=== PATIENT | male | born 1950 | race Caucasian/White ===

== ENCOUNTER 2016-07-24 05:58 | Emergency (ER) | payer OTHER ==
[~2016-07-24] VITALS: Ht 182.9 cm; Wt 105.0 kg
[~2016-07-24 05:58] MED LIST: ROBA750T PO
[2016-07-24 06:12] VITALS: BP 152/88; PULSE 58; RESP 16; TEMP 98.6; O2SAT 99
[2016-07-24] MEDS ORDERED: VALT1TAB PO (06:25)
--- NOTE | 2016-07-24 06:25 | PD ---
HPI Chief Complaint: Skin Problem Time Seen by Provider: 06:16 Travel History International Travel<30 days: No Contact w/Intl Traveler<30days: No Traveled to known affect area: No History of Present Illness HPI Skin otherwise healthy 65 room and who presents emergent arm or the distribution goes is recurring. Last year he had what sounds like V1 distribution shingles over his forehead. He has postherpetic neuralgia from that. She having worsening pain and abnormal sensations with past couple days. Also had some hot flash-type symptoms over the past couple days. This morning 7 worsening pain and felt small blisters over the top of his brow. He otherwise has been feeling generally well. No other complaints. No other episodes of shingles other than the one previous time. Patient states is read that if you get it read the diffuse treated immediately it'll reduce the severity of symptoms. History Past Medical History Medical History: Denies Significant Hx Social History Alcohol Use: Yes Tobacco Use: No Allergies-Medications (Allergen,Severity, Reaction): Coded Allergies: No Known Allergies (Verified , 01/13/16) Reported Meds & Prescriptions Reported Meds & Active Scripts Active Robaxin (Methocarbamol) 750 Mg Tab 750 Mg PO QID PRN 2 tabs QID for 2 days, then 1 tab QID thereafter Review of Systems Except as stated in HPI: all other systems reviewed are Neg Physical Exam Narrative GENERAL: Medical decision making, no acute distress. SKIN: Focused skin assessment warm/dry. HEAD: Atraumatic. Normocephalic. EYES: Pupils equal and round. No scleral icterus. No injection or drainage. Flourescene exam is negative. ENT: No nasal bleeding or discharge. Mucous membranes pink and moist. Small blisters over the right brow. NECK: Trachea midline. No JVD. CARDIOVASCULAR: Regular rate and rhythm. No murmur appreciated. RESPIRATORY: No accessory muscle use. Clear to auscultation. Breath sounds equal bilaterally. GASTROINTESTINAL: Abdomen soft, non-tender, nondistended. Hepatic and splenic margins not palpable. MUSCULOSKELETAL: No obvious deformities. Data Data Last Documented VS Vital Signs Date Time Temp Pulse Resp B/P Pulse Ox O2 Delivery O2 Flow Rate FiO2 07/24/16 06:12 98.6 58 16 152/88 99 Room Air Orders Valacyclovir (Valtrex) (07/24/16 06:30) [facility] Medical Decision Making Medical Screen Exam Complete: Yes Emergency Medical Condition: Yes Differential Diagnosis Shingles, postherpetic neuralgia, blisters, other Narrative Course Medical decision making 65-year-old man, post medic neuralgia, small blistered right above the brow. This is suggestive of early zoster but not clearly diagnostic of such. Nonetheless, we'll recommend treatment with Valtrex, outpatient follow-up. Diagnosis Primary Impression: Zoster Additional Instructions: Take zoster as prescribed. Valtrex as prescribed. Return to the emergency department for any new or worsening symptoms. Med/Other Pt SpecificInfo: Prescription(s) given Scripts Valacyclovir (Valtrex)1 Gm Tab1,000 Mg PO TID 7 Days Ref 0 Prov:Bin Miles MD 07/24/16 Disposition: 01 DISCHARGE HOME Condition: Stable Bin Miles MD Jul 24, 2016 06:25
[2016-07-24] MEDS ORDERED: valACYclovir HCL 500 MG TAB PO ONE (06:30)
== END 2016-07-24 06:50 | disposition home or self-care (01) ==
LOC: NEPC 05:58
DX: B02.9 Zoster without complications (principal); X58.XXXA Exposure to other specified factors, initial encounter
CPT/HCPCS: 99283

== ENCOUNTER 2016-09-14 10:09 | Emergency (ER) | payer OTHER ==
[~2016-09-14] VITALS: Ht 190.5 cm; Wt 100.0 kg
[~2016-09-14 10:09] MED LIST changes: -ROBA750T PO; +VALT1TAB PO
[2016-09-14 10:16] VITALS: BP 159/89; PULSE 77; RESP 17; TEMP 98.2; O2SAT 98
[2016-09-14] MEDS ORDERED: HYDR-3583 PO (12:31)
[2016-09-14] MEDS ORDERED: TEMA15CA PO (12:31)
[2016-09-14] MEDS ORDERED: ZOLO25TA PO (12:31)
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
[2016-09-14] MEDS ORDERED: LIDOCAINE 1%/EPINEPHrine 1:100,000 SOLN 20 ML VIAL INFIL ONE (12:45)
[2016-09-14] MEDS ORDERED: LIDOCAINE 1%/EPINEPHrine 1:100,000 SOLN 30 ML VIAL ONE (12:47)
--- NOTE | 2016-09-14 14:18 | RADRPT ---
EXAM DATE/TIME: 09/14/2016 14:02 [facility] COMPARISON: CT BRAIN W/O CONTRAST, March 15, 2010, 22:02. INDICATIONS : Patient fell today, 2 feet and hit head. RADIATION DOSE: 39.60 CTDIvol (mGy) MEDICAL HISTORY : Psychosis. SURGICAL HISTORY : None. ENCOUNTER: Initial ACUITY: 1 day PAIN SCALE: 4/10 LOCATION: Bilateral cranial posterior TECHNIQUE: Multiple contiguous axial images were obtained of the head. Using automated exposure control and adj ustment of the mA and/or kV according to patient size, radiation dose was kept as low as reasonably a chievable to obtain optimal diagnostic quality images. DICOM format image data is available electro nically for review and comparison. FINDINGS: CEREBRUM: The ventricles are normal for age. No evidence of midline shift, mass lesion, hemorrhage or acute in farction. No extra-axial fluid collections are seen. POSTERIOR FOSSA: The cerebellum and brainstem are intact. The 4th ventricle is midline. The cerebellopontine angle i s unremarkable. EXTRACRANIAL: The visualized portion of the orbits is intact. Chronic sinus disease of the ethmoid sinuses. Small l aceration to the posterior left scalp. SKULL: The calvaria is intact. No evidence of skull fracture. CONCLUSION: 1. Unremarkable CT scan of the brain. No significant change compared to the prior study. 2. Small laceration to the posterior left scalp. 3. Chronic ethmoid sinus disease. Abdi Miranda MD on September 14, 2016 at 14:14 Board Certified Radiologist. This report was verified electronically.
--- NOTE | 2016-09-14 14:27 | RADRPT ---
EXAM DATE/TIME: 09/14/2016 14:02 [facility] COMPARISON: CT CERVICAL SPINE W/O CONTRAST, January 13, 2016, 11:37. INDICATIONS : Patient fell about today about 2 feet. RADIATION DOSE: 18.86 CTDIvol (mGy) MEDICAL HISTORY : Psychosis. SURGICAL HISTORY : None. ENCOUNTER: Initial ACUITY: 1 day PAIN SCALE: 8/10 LOCATION: Bilateral neck region. TECHNIQUE: Volumetric scanning of the cervical spine was performed. Multiplanar reconstructions in the sagittal, coronal and oblique axial planes were performed. Using automated exposure control and adjustment o f the mA and/or kV according to patient size, radiation dose was kept as low as reasonably achievable to obtain optimal diagnostic quality images. DICOM format image data is available electronically f or review and comparison. FINDINGS: Today's exam is compared to the prior study from 01/13/2016. There continues to be diffuse bony degene rative changes throughout the cervical spine. No acute bony fractures. No evidence of spondylolisthes is. The odontoid process is intact. 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 These find ings are stable compared to the prior examination. CONCLUSION: 1. No acute bony fracture. 2. Diffuse primary bony degenerative change throughout the entire cervical spine without significant change compared to the prior examination. Abdi Miranda MD on September 14, 2016 at 14:24 Board Certified Radiologist. This report was verified electronically.
[2016-09-14] MEDS ORDERED: NAPR500 PO (14:33)
[2016-09-14] MEDS ORDERED: ROBA500T PO (14:33)
[2016-09-14] MEDS ORDERED: CYCLOBENZAPRINE HCL 10 MG TAB PO ONE (14:45)
[2016-09-14] MEDS ORDERED: ACETAMINOPHEN/HYDROcodone 325 MG/5 MG TAB PO ONE (14:45)
[2016-09-14 15:00] VITALS: BP 148/83; TEMP 97.8
== END 2016-09-14 15:00 | disposition home or self-care (01) ==
LOC: NEPD 10:09
DX: S01.01XA Laceration without foreign body of scalp, initial encounter (principal); S09.90XA Unspecified injury of head, initial encounter; M54.2 Cervicalgia; G89.29 Other chronic pain; J32.2 Chronic ethmoidal sinusitis; F32.9 Major depressive disorder, single episode, unspecified; B02.29 Other postherpetic nervous system involvement; F29 Unspecified psychosis not due to a substance or known physiological condition; V89.9XXA Person injured in unspecified vehicle accident, initial encounter
CPT/HCPCS: 12001; 70450; 72125